=== PATIENT | female | born 1975 | race American Indian/Alaskan Native ===

== ENCOUNTER 2016-12-04 23:10 | Emergency (ER) | payer OTHER ==
[2016-12-05 00:05] VITALS: BP 141/91
== END 2016-12-05 00:05 | disposition home or self-care (01) ==
LOC: ED 23:10
DX: O99.519 Diseases of the respiratory system complicating pregnancy, unspecified trimester (principal); J06.9 Acute upper respiratory infection, unspecified; Z3A.00 Weeks of gestation of pregnancy not specified; Z79.899 Other long term (current) drug therapy; Z88.1 Allergy status to other antibiotic agents

== ENCOUNTER 2017-03-12 06:26 | Emergency (ER) | payer OTHER ==
[~2017-03-12] VITALS: Ht 167.6 cm; Wt 101.7 kg
[2017-03-12 06:40] VITALS: BP 136/87
== END 2017-03-12 07:06 | disposition home or self-care (01) ==
LOC: ED 06:26
DX: R13.10 Dysphagia, unspecified (principal); Z88.1 Allergy status to other antibiotic agents

== ENCOUNTER 2020-01-11 04:44 | Emergency (ER) | payer OTHER ==
[~2020-01-11] VITALS: Ht 167.6 cm; Wt 93.9 kg
[2020-01-11 04:51] VITALS: Ht 167.6 cm; Wt 93.9 kg
[2020-01-11 05:50] VITALS: BP 128/75
== END 2020-01-11 05:50 | disposition home or self-care (01) ==
LOC: ED 04:44
DX: N39.0 Urinary tract infection, site not specified (principal)
CPT/HCPCS: Q0162